=== PATIENT | male | born 1970 | race Caucasian/White ===

== ENCOUNTER 2016-06-01 03:05 | Emergency (ER) | payer OTHER ==
[~2016-06-01] VITALS: Ht 180.3 cm; Wt 83.8 kg
[~2016-06-01 03:05] MED LIST: NOHOMEMEDS; NORCO 5/3251 TABLET PO; PERCOCET 5/31 TABLET PO; PREDNISONE20 MG PO; TYLENOL EXTRA500 MG PO; ZANTAC150 MG PO; ZOFRAN ODT4 MG PO; predniSONE PO
[2016-06-01 03:56] LABS: CHLORIDE 107 mEq/L (99-109); MEAN PLAT.VOLUME 9.7 uM^3 (9.0-12.4); PLATELET COUNT 189 K/uL (156-360); POTASSIUM 3.1 mEq/L (3.7-5.4); SODIUM 143 mEq/L (136-147)
[2016-06-01 03:58] LABS: GLUCOSE 126 mg/dL (70-99)
[2016-06-01 04:00] LABS: ANION GAP 13 MEQ/L (2-14); INTER. NORMALIZED RATIO 1.1; PROTHROMBIN TIME 11.1 (9.2-11.2); TOTAL BILIRUBIN 0.7 mg/dL (0.0-1.0)
[2016-06-01 04:02] LABS: ALKALINE PHOSPHATASE 84 IU/L (3-129); GFR ESTIMATE (CALCULATED) > 59 mL/min/
[2016-06-01 04:03] LABS: UREA NITROGEN (BUN) 13 mg/dL (9-23)
[2016-06-01 04:03] LABS: ADD MIUA? YES; BILIRUBIN SMALL; BLOOD LARGE; COLOR DK YELLOW ((YELLOW)); GLUCOSE (STRIP) NEGATIVE; KETONES TRACE; LEUKOCYTES NEGATIVE; NITRITE NEGATIVE; PH, URINE 5.5 (5-8); PROTEIN (STRIP) 100; SPECIFIC GRAVITY 1.037 (1.000-1.030)
[2016-06-01 04:05] LABS: LIPASE 16 U/L (1.0-51.0)
[2016-06-01 04:22] LABS: HEMATOCRIT 42.4 % (38.0-50.0); MCH 34.5 PG (29.0-34.0); MCHC 37.3 G/DL (30.0-36.0); MCV 92.6 FL (86-99); RBC DIS.WIDTH-CV 13.2 % (11.8-14.6); RBC DIS.WIDTH-SD 43.1 % (39-53); RED BLOOD COUNT 4.58 M/uL (4.00-5.50); WHITE BLOOD COUNT 9.3 K/uL (4.1-10.2)
[2016-06-01 04:30] LABS: BACTERIA 1+; CASTS NONE SEEN /LPF; CRYSTALS NONE SEEN; EPITHELIAL CELLS RARE; MUCUS NONE SEEN; RED BLOOD CELLS TNTC /HPF (0-5); UCUL ADDED? NO; WHITE BLOOD CELLS 0-5 /HPF (0-5)
[2016-06-01] MEDS ORDERED: PERCOCET 5/31 TABLET PO (05:07)
[2016-06-01] MEDS ORDERED: KEFLEX500 MG PO (05:07)
[2016-06-01] MEDS ORDERED: ZOFRAN4 MG PO (05:07)
[2016-06-01 05:50] VITALS: BP 116/68
== END 2016-06-01 05:50 | disposition home or self-care (01) ==
LOC: EME → EDBD 03:05 → EME 05:50
PROVIDERS: Emergency Medicine
DX: N20.1 Calculus of ureter (principal); N39.0 Urinary tract infection, site not specified; E86.0 Dehydration; E87.6 Hypokalemia; Z93.2 Ileostomy status; F17.200 Nicotine dependence, unspecified, uncomplicated
CPT/HCPCS: 74176; 80053; 81003; 83605; 83690; 85027; 85610; 85730; 86850; 86900; 86901; 93005; 99281; 99285; J0696; J1885; J2270; J2405; J2765; J3010; J7030; J7050

== ENCOUNTER 2017-09-20 19:46 | Emergency (ER) | payer OTHER ==
[~2017-09-20] VITALS: Ht 180.3 cm; Wt 80.8 kg
[2017-09-20 19:46] VITALS: BP 132/82
[~2017-09-20 19:46] MED LIST changes: +KEFLEX500 MG PO; +ZOFRAN4 MG PO
== END 2017-09-20 20:38 | disposition home or self-care (01) ==
LOC: EME 19:46
DX: Z20.811 Contact with and (suspected) exposure to meningococcus (principal); Z57.8 Occupational exposure to other risk factors
CPT/HCPCS: 99281; 99283

== ENCOUNTER 2017-12-07 13:35 | Emergency (ER) | payer OTHER ==
[~2017-12-07] VITALS: Ht 180.3 cm; Wt 84.8 kg
[2017-12-07 14:05] LABS: HEMATOCRIT 41.8 % (38.0-50.0); HEMOGLOBIN 14.9 G/DL (12.5-16.6); MCH 33.9 PG (29.0-34.0); MCHC 35.6 G/DL (30.0-36.0); PLATELET COUNT 171 K/uL (156-360); RBC DIS.WIDTH-CV 12.7 % (11.8-14.6); RBC DIS.WIDTH-SD 43.8 % (39-53); WHITE BLOOD COUNT 9.7 K/uL (4.1-10.2)
[2017-12-07 14:18] LABS: CHLORIDE 105 mEq/L (99-109); POTASSIUM 3.2 mEq/L (3.7-5.4); SODIUM 142 mEq/L (136-147)
[2017-12-07 14:20] LABS: GLUCOSE 96 mg/dL (70-99)
[2017-12-07 14:24] LABS: CREATININE 0.9 mg/dL (0.6-1.3); GFR ESTIMATE (CALCULATED) > 59 mL/min/ (58.99-99999)
[2017-12-07 14:25] LABS: UREA NITROGEN (BUN) 13 mg/dL (9-23)
[2017-12-07 14:31] LABS: TROP-I INTERPRETATION NEGATIVE; TROPONIN-I < 0.01 ng/mL (0.0-0.30)
[2017-12-07 18:14] VITALS: BP 116/76
== END 2017-12-07 18:21 | disposition home or self-care (01) ==
LOC: EME 13:35
PROVIDERS: Emergency Medicine
DX: E16.2 Hypoglycemia, unspecified (principal); E86.0 Dehydration; R42 Dizziness and giddiness; K21.9 Gastro-esophageal reflux disease without esophagitis; K50.90 Crohn's disease, unspecified, without complications; Z87.19 Personal history of other diseases of the digestive system; Z93.2 Ileostomy status; F32.9 Major depressive disorder, single episode, unspecified; F17.200 Nicotine dependence, unspecified, uncomplicated
CPT/HCPCS: 70450; 80048; 81003; 82948; 84484; 85027; 93005; 99281; 99285; J7030